=== PATIENT | female | born 1960 | race Caucasian/White ===

== ENCOUNTER → 2016-07-01 | Outpatient (CLI) | payer OTHER ==
[~2016-07-01] MED LIST: ALBUTEROL-200 PUFFS/ IH; LEVOTHYROXIN0.025 MG PO; LEVOTHYROXIN0.125 MG PO; LISINOPRIL20 MG PO; MEDROL 4MG. DOSE4 MG PO; MELOXICAM15 MG PO; PRAVASTATIN40 MG PO; PREDNISONE 20MG20 MG PO; [UNRECOGNIZED DRUG - OTHER] PO
--- NOTE | 2016-07-01 16:56 | RADIOLOGY REPORT PS360 ---
CT CHEST W/O CONTRAST HISTORY: Shortness of breath, COPD, abnormal chest x-ray, solitary pulmonary nodule ABNORMAL CXR, COPD, OPACITY ANTERIOR CLEAR SPACE ON CXR TECHNIQUE: Helical acquisition obtainedwithout contrast. Axial, sagittal, and coronal reformatted images are generated and reviewed. COMPARISON: Chest x-ray 06/14/[address] of 09/28/2014 FINDINGS: There are scattered small nodes in the axilla and mediastinum. No mediastinal or hilar mass is evident. Calcified node is present in the left hilum. There is a prominent right-sided pericardial fat pad accounting for some of the density noted along the right heart border. The nodular density noted over the anterior clear space is felt to be represented by fibrotic change and small left pericardial fat pad which is more apparent than when compared to the previous exam. No suspicious nodule is evident. There are mild atelectatic or fibrotic changes in the left lung base. No effusions or infiltrates. Upper abdominal images show decreased attenuation within the right hepatic lobe is incompletely imaged measuring approximately 11 mm. Probably not significant change from 09/28/2014. No acute bony anomalies. IMPRESSION: 1. No acute finding. No suspicious pulmonary nodule evident. 2. Prominent pericardial fat pad on the right. 3. Fibrotic changes of the right upper lobe and left pericardial fat pad represent the nodular opacity noted on the chest x-ray
== END ==
LOC: RAD 07:42
DX: R93.8 Abnormal findings on diagnostic imaging of other specified body structures (principal)

== ENCOUNTER → 2016-10-27 | Outpatient (CLI) | payer OTHER | LOC: RT 09:47 | DX: J44.9 Chronic obstructive pulmonary disease, unspecified (principal); G47.30 Sleep apnea, unspecified ==

== ENCOUNTER 2017-04-03 12:41 | Emergency (ER) | payer OTHER ==
[~2017-04-03] VITALS: Ht 152.4 cm; Wt 95.3 kg
[2017-04-03] MEDS ORDERED: IBU800 MG PO (12:48)
[2017-04-03] MEDS ORDERED: BREO ELLIPTA 21 EACH IH (12:48)
--- NOTE | 2017-04-03 12:51 | Emergency Room Report ---
History of Present Illness Time Seen by MD Peres Presenting Problem in Triage Pt arrived:Walked Presenting Problem:PT REPORTS INTERMITENT SQUEEZING TYPE CHEST PAIN X1 MONTH. 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 N Clinical Suspician of Infection? N Mental Status: 1 - Regular (Normal Baseline) Sepsis Risk:Low Sepsis Risk Have you (or family members/close friends) recently traveled outside the [place]? N If Yes, where/when: Have you had exposure to infectious disease within the past month? N TB? Other? Specify: Patient with chronic sinus and ear congestion, has felt worse this past week. No vomiting, cough, or fever. Had two episodes earlier this morning where she changed position and had vertigo, relieved by lying down. Has intermittent palpitations most days, very sharp and lasting less than a second, but no rhett chest pain. No chest pain on presentation to ED. Has chronic leg edema, no new changes. Reports no hx of known CAD, has "prediabetes", HTN, hyperlipidemia; denies tob use; states dad of [place] at age 68. She has no cephalgia and no acute neurological sx other than positional vertigo today. ALLERGIES Coded Allergies: amoxicillin (From Augmentin) (Intermediate, 09/22/15) clavulanic acid (From Augmentin) (Intermediate, 09/22/15) meloxicam (Intermediate, 09/22/15) Home Medications Reported Medications Albuterol (Albuterol-Hfa Inhaler) 2 PUFFS IH NEEDED #1 INH Lisinopril 20 MG PO DAILY Theophylline (Theocap) 300 MG PO DAILY Levothyroxine Sodium (Levothyroxine 0.125MG) 0.125 MG PO DAILY Fluticasone/Vilanterol (Breo Ellipta 200-25 Mcg INH) 1 EACH IH DAILY Ibuprofen (MOTRIN 800MG (generic) Tablet) 800 MG PO TID #90 History Medical History General CAD? No Angina: No GA: No Hypertension? Yes Hyperlipidemia? No CHF? No DVT? No PE? No COPD? Yes Asthma? Yes Anemia? No GERD? No Gastric ulcers? No GI Bleed? No Hernia? No Thyroid Problems? Yes Hypothyroidism? Yes CVA? No Seizures? No Diabetes? No Renal Insuffiency? No End Stage Renal Disease? No UTI? Yes Stones? No GB Disease: No Nephritic Syndrome? No Asplenia? No Hepatitis? No Sickle Cell Disease? No Arthritis? No Migraines? No Cataracts? No Glaucoma? No MRSA? No HIV? No TB? No Anxiety? No Depression? No Cancer? No More? 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 Psychiatric/Neurological see HPI Physical Exam Vital Signs Vital Signs Date Time Temp Pulse Resp B/P Pulse O2 O2 Flow FiO2 Ox Delivery Rate 04/03 1324 76 14 138/80 94 04/03 1241 98.0 79 20 156/68 94 General Appearance normal appearance, WD/WN, no apparent distress Eye Exam - bilateral eye normal exam, bilateral eye PERRL, bilateral eye EOMI Ear, Nose, Throat hearing grossly normal, abnormal TM (R), abnormal TM (L) ( cloudy B) Neck normal inspection, non-tender, supple, full range of motion Respiratory Status Yes: trachea midline, chest symmetrical, non tender chest. No: respiratory distress, tender on palpation, use of accessory muscles, pain on inspiration, pain on expiration, productive cough, non productive cough. Lung Sounds bilateral: normal breath sounds, lungs clear. Cardiovascular normal exam, regular rate/rhythm, no peripheral edema, no gallop, no JVD, no murmur, no rub, normal peripheral pulses Peripheral Pulses Pulses normal Yes Gastrointestinal normal bowel sounds, normal exam, non tender, soft, no organomegaly, no pulsatile mass, no guarding, no rebound Extremities non-tender, normal range of motion, normal inspection, normal capillary refill, no calf tenderness, no pedal edema (neg Mary's) Strength 5 Upper Ext (L), 5 Upper Ext (R), 5 Lower Ext (L), 5 Lower Ext (R) Neurologic alert, senior investment analyst II-XII nml as tested, normal exam, no motor/sensory deficits, oriented x 3 (speech clear; ambulatory) Glascow Coma Scale Glascow Coma Scale Response Value EYE response: 4 Spontaneously 4 MOTOR response: 6 OBEYS 6 VERBAL response: 5 Oriented & Converses 5 Total 15 Skin intact (flushed (tanning bed) face) Medical Decision Making LABS/Meds/Orders Pt receiving controlled substance in ED? No Results/Orders Laboratory Tests 04/03/17 1240: Sodium 140, Potassium 4.3, Chloride 105, Carbon Dioxide 29, BUN 20 H, Creatinine 0.8, Estimated Creat Clear 119, Estimated GFR (MDRD) 74, Glucose 143 H, Calcium 9.3, Total Bilirubin 0.3, AST 9 L, ALT 28, Alkaline Phosphatase 92, Creatine Kinase 72, CK-MB (CK-2) Rel Index 1.4, CK and CKMB Interp 1.0, Troponin I < 0.02, Total Protein 7.8, Albumin 3.7, Globulin 4.1 H, Albumin/Globulin Ratio 0.9 L, TSH 2.38, WBC 6.8, RBC 4.37, Hgb 13.8, Hct 40.3, MCV 92.2, RDW 12.8, Plt Count 263, MPV 8.1, Gran % 65.7, Gran # 4.5, Lymphocytes % 27.9, Monocytes % 3.9, Eosinophils % 1.6, Basophils % 0.8, Lymphocytes # 1.9, Monocytes # 0.3, Eosinophils # 0.1, Basophils # 0.1, PUBS MCHC 34.1, MCH 31.5 H Current Medication Orders Sig/Wendi Start time Last Medication Dose Route Stop Time Status Admin Sodium Chloride 10 ML PRN PRN 04/03 1300 AC IV 04/04 1249 Orders Procedure Date/time Status DIET-NOTHING BY MOUTH 04/03 D Active IV SALINE LOCK 04/03 1249 Active ELECTROCARDIOGRAM REQUEST 04/[address] HEAD REQ 04/03 1246 Complete THYROID STIMULATING HORMONE 04/03 1246 Complete CBC WITH AUTO DIFF 04/03 1246 Complete CARDIAC ENZYMES 04/03 1246 Complete CHEM 12 PROFILE 10/09 1246 Complete CM/EKG CM/EKG EKG rate, NSR, rhythm, no evid. of ischemic chgs, no ectopy, normal QRS, normal WA, normal EKG XRAY/CT/US XRAY/CT/US XRAY chest XR interpretation by reviewed by me Xray Results normal/NAD, no infiltrates, normal heart size, normal lung inflation jayce CT head CT interpretation by reviewed by me (report reviewed) Time results known: 1331 CT Results normal/NAD (neg acute per rad) Progress ED Progress Notes Date 04/03/17 Time 1338 Comment Asymptomatic now. Has not had any chest pain or palpitations while in the ED. Departure Departure Time of Disposition 1332 Disposition DC Home or Self Care(routine) Clinical Impression Primary Impression: Benign positional vertigo Qualifiers: Laterality: unspecified laterality Qualified Code: H81.10 - Benign paroxysmal vertigo, unspecified ear Condition STABLE Referrals Jackelyn Schuler APRN (PCP/Family) Patient Instructions Benign Paroxysmal Positional Vertigo Additional Instructions Recommend Claritin over the counter to treat congestion, which will help with the dizziness. Stand up slowly and carefully from sitting position, see Jackelyn one to two days. Discharge Counseling Counseled pt/family regarding diagnosis, test results, medications/RX, home care, follow up needs ED Critical Care Critical Care No at 1337
--- NOTE | 2017-04-03 12:51 | Emergency Room Report ---
History of Present Illness Time Seen by MD Peres Presenting Problem in Triage Pt arrived:Walked Presenting Problem:PT REPORTS INTERMITENT SQUEEZING TYPE CHEST PAIN X1 MONTH. 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 N Clinical Suspician of Infection? N Mental Status: 1 - Regular (Normal Baseline) Sepsis Risk:Low Sepsis Risk Have you (or family members/close friends) recently traveled outside the [place]? N If Yes, where/when: Have you had exposure to infectious disease within the past month? N TB? Other? Specify: Patient with chronic sinus and ear congestion, has felt worse this past week. No vomiting, cough, or fever. Had two episodes earlier this morning where she changed position and had vertigo, relieved by lying down. Has intermittent palpitations most days, very sharp and lasting less than a second, but no rhett chest pain. No chest pain on presentation to ED. Has chronic leg edema, no new changes. Reports no hx of known CAD, has "prediabetes", HTN, hyperlipidemia; denies tob use; states dad of [place] at age 68. She has no cephalgia and no acute neurological sx other than positional vertigo today. ALLERGIES Coded Allergies: amoxicillin (From Augmentin) (Intermediate, 09/22/15) clavulanic acid (From Augmentin) (Intermediate, 09/22/15) meloxicam (Intermediate, 09/22/15) Home Medications Reported Medications Albuterol (Albuterol-Hfa Inhaler) 2 PUFFS IH NEEDED #1 INH Lisinopril 20 MG PO DAILY Theophylline (Theocap) 300 MG PO DAILY Levothyroxine Sodium (Levothyroxine 0.125MG) 0.125 MG PO DAILY Fluticasone/Vilanterol (Breo Ellipta 200-25 Mcg INH) 1 EACH IH DAILY Ibuprofen (MOTRIN 800MG (generic) Tablet) 800 MG PO TID #90 History Medical History General CAD? No Angina: No OR: No Hypertension? Yes Hyperlipidemia? No CHF? No DVT? No PE? No COPD? Yes Asthma? Yes Anemia? No GERD? No Gastric ulcers? No GI Bleed? No Hernia? No Thyroid Problems? Yes Hypothyroidism? Yes CVA? No Seizures? No Diabetes? No Renal Insuffiency? No End Stage Renal Disease? No UTI? Yes Stones? No GB Disease: No Nephritic Syndrome? No Asplenia? No Hepatitis? No Sickle Cell Disease? No Arthritis? No Migraines? No Cataracts? No Glaucoma? No MRSA? No HIV? No TB? No Anxiety? No Depression? No Cancer? No More? 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 Psychiatric/Neurological see HPI Physical Exam Vital Signs Vital Signs Date Time Temp Pulse Resp B/P Pulse O2 O2 Flow FiO2 Ox Delivery Rate 04/03 1324 76 14 138/80 94 04/03 1241 98.0 79 20 156/68 94 General Appearance normal appearance, WD/WN, no apparent distress Eye Exam - bilateral eye normal exam, bilateral eye PERRL, bilateral eye EOMI Ear, Nose, Throat hearing grossly normal, abnormal TM (R), abnormal TM (L) ( cloudy B) Neck normal inspection, non-tender, supple, full range of motion Respiratory Status Yes: trachea midline, chest symmetrical, non tender chest. No: respiratory distress, tender on palpation, use of accessory muscles, pain on inspiration, pain on expiration, productive cough, non productive cough. Lung Sounds bilateral: normal breath sounds, lungs clear. Cardiovascular normal exam, regular rate/rhythm, no peripheral edema, no gallop, no JVD, no murmur, no rub, normal peripheral pulses Peripheral Pulses Pulses normal Yes Gastrointestinal normal bowel sounds, normal exam, non tender, soft, no organomegaly, no pulsatile mass, no guarding, no rebound Extremities non-tender, normal range of motion, normal inspection, normal capillary refill, no calf tenderness, no pedal edema (neg Mary's) Strength 5 Upper Ext (L), 5 Upper Ext (R), 5 Lower Ext (L), 5 Lower Ext (R) Neurologic alert, payment collector II-XII nml as tested, normal exam, no motor/sensory deficits, oriented x 3 (speech clear; ambulatory) Glascow Coma Scale Glascow Coma Scale Response Value EYE response: 4 Spontaneously 4 MOTOR response: 6 OBEYS 6 VERBAL response: 5 Oriented & Converses 5 Total 15 Skin intact (flushed (tanning bed) face) Medical Decision Making LABS/Meds/Orders Pt receiving controlled substance in ED? No Results/Orders Laboratory Tests 04/03/17 1240: Sodium 140, Potassium 4.3, Chloride 105, Carbon Dioxide 29, BUN 20 H, Creatinine 0.8, Estimated Creat Clear 119, Estimated GFR (MDRD) 74, Glucose 143 H, Calcium 9.3, Total Bilirubin 0.3, AST 9 L, ALT 28, Alkaline Phosphatase 92, Creatine Kinase 72, CK-MB (CK-2) Rel Index 1.4, CK and CKMB Interp 1.0, Troponin I < 0.02, Total Protein 7.8, Albumin 3.7, Globulin 4.1 H, Albumin/Globulin Ratio 0.9 L, TSH 2.38, WBC 6.8, RBC 4.37, Hgb 13.8, Hct 40.3, MCV 92.2, RDW 12.8, Plt Count 263, MPV 8.1, Gran % 65.7, Gran # 4.5, Lymphocytes % 27.9, Monocytes % 3.9, Eosinophils % 1.6, Basophils % 0.8, Lymphocytes # 1.9, Monocytes # 0.3, Eosinophils # 0.1, Basophils # 0.1, PUBS MCHC 34.1, MCH 31.5 H Current Medication Orders Sig/Wendi Start time Last Medication Dose Route Stop Time Status Admin Sodium Chloride 10 ML PRN PRN 04/03 1300 AC IV 04/04 1249 Orders Procedure Date/time Status DIET-NOTHING BY MOUTH 04/03 D Active IV SALINE LOCK 04/03 1249 Active ELECTROCARDIOGRAM REQUEST 04/[address] HEAD REQ 04/03 1246 Complete THYROID STIMULATING HORMONE 04/03 1246 Complete CBC WITH AUTO DIFF 04/03 1246 Complete CARDIAC ENZYMES 04/03 1246 Complete CHEM 12 PROFILE 10/09 1246 Complete CM/EKG CM/EKG EKG rate, NSR, rhythm, no evid. of ischemic chgs, no ectopy, normal QRS, normal SD, normal EKG XRAY/CT/US XRAY/CT/US XRAY chest XR interpretation by reviewed by me Xray Results normal/NAD, no infiltrates, normal heart size, normal lung inflation jayce CT head CT interpretation by reviewed by me (report reviewed) Time results known: 1331 CT Results normal/NAD (neg acute per rad) Progress ED Progress Notes Date 04/03/17 Time 1338 Comment Asymptomatic now. Has not had any chest pain or palpitations while in the ED. Departure Departure Time of Disposition 1332 Disposition DC Home or Self Care(routine) Clinical Impression Primary Impression: Benign positional vertigo Qualifiers: Laterality: unspecified laterality Qualified Code: H81.10 - Benign paroxysmal vertigo, unspecified ear Condition STABLE Referrals Jackelyn Schuler APRN (PCP/Family) Patient Instructions Benign Paroxysmal Positional Vertigo Additional Instructions Recommend Claritin over the counter to treat congestion, which will help with the dizziness. Stand up slowly and carefully from sitting position, see Jackelyn one to two days. Discharge Counseling Counseled pt/family regarding diagnosis, test results, medications/RX, home care, follow up needs ED Critical Care Critical Care No at 1336
[2017-04-03 12:53] LABS: HEMOGLOBIN 13.8 g/dL (12.2-16.2); LYMPH # 1.9 K/mm3 (0.7-4.5); LYMPH % 27.9 % (10-50.0)
[2017-04-03 13:22] LABS: BUN 20 mg/dL (7-18)
[2017-04-03 13:23] LABS: GFR (ESTIMATED) 74 ML/MIN (59-)
--- NOTE | 2017-04-03 13:29 | RADIOLOGY REPORT PS360 ---
CT HEAD W/O CONTRAST HISTORY: POSITIONAL VERTIGO ORDERING PHYSICIAN: Eneida Rangel MD PATIENT AGE: 56 years COMPARISON: None TECHNIQUE: Axial images obtained without contrast. Brain and bone windows reviewed. FINDINGS: No midline shift, mass effect, intracranial hemorrhage, hydrocephalus, or extra-axial fluid collection is evident. The calvarium has an unremarkable appearance. No mastoid effusion. The visualized paranasal sinuses are unremarkable. IMPRESSION: Negative CT head without contrast. No acute finding.
--- NOTE | 2017-04-03 13:32 | RADIOLOGY REPORT PS360 ---
CHEST-AP VIEW ONLY HISTORY: Recent cough and congestion dizzy ORDERING PHYSICIAN: Eneida Rangel MD PATIENT AGE: 56 years COMPARISON: 06/22/2016 FINDINGS: Normal heart size. There is increased density along the right heart border with silhouetting out of the right heart border. Previous CT scans have shown a prominent right pericardial fat pad. This density may be related to the pericardial fat pad and the portable technique. However, one cannot exclude the possibility of right middle lobe pneumonia/collapse versus right pericardial mass. Consider PA and lateral chest x-ray for further evaluation. The remaining lungs are clear. No acute bony anomalies. IMPRESSION: Increased density along the right heart border as described above possibly related to the previously noted prominent pericardial fat pad. Consider PA and lateral chest as right middle lobe consolidation or right pericardial mass cannot be excluded.
[2017-04-03 13:42] VITALS: BP 138/80
--- OUTSIDE RECORDS SUMMARY | 2017-04-08 02:06 | External Medical Summary Rpt | CCD ---
Author Author , ANICETO Organization AN[employer] Address Unknown Phone [email or web address] Immunization Name Date Rout CVX Reac Dose Comm Prov Is Faci e tion ent ider Refu lity Give sed n Td 12-2 9 999 Hist H149 No H149 (shaye 7-20 ori lt), 05 al Info adso rmat rbed ion - Sour ce Unsp ecif ied
--- OUTSIDE RECORDS SUMMARY | 2017-04-08 02:06 | External Medical Summary Rpt | CCD ---
Author Author ANICETO Address Unknown Phone Purpose Continuity of Care Document - 04-03-2017 through 2016
--- OUTSIDE RECORDS SUMMARY | 2017-04-08 02:06 | External Medical Summary Rpt | CCD ---
Author Author , ANICETO Organization ANIC[employer] Address Unknown Phone [email or web address] Immunization Name Date Rout CVX Reac Dose Comm Prov Is Faci e tion ent ider Refu lity Give sed n Td 12-2 9 999 Hist H149 No H149 (shaye 7-20 ori lt), 05 al Info adso rmat rbed ion - Sour ce Unsp ecif ied
--- OUTSIDE RECORDS SUMMARY | 2017-04-08 02:06 | External Medical Summary Rpt | CCD ---
Author Author ANICETO Address Unknown Phone [email or web address] Purpose Continuity of Care Document - 04-03-2017 through 2016
--- OUTSIDE RECORDS SUMMARY | 2017-04-08 02:06 | External Medical Summary Rpt ---
Author Author [employer] Production, [employer] Organization [employer] Address Unknown Phone Unavailable Results CBC W Auto Differential panel in Blood Observa Value Referen Units Interpr Notes Date tion ce etation Range Basophils 0 - 0.2 K/MM3 Normal No Apr 03 inform2016 [#/volume on in 12:40 PM ] in source Blood by data Automated count Basophils 0.1 - 2.0 % Normal No Apr [id number] leukocyte on in 12:40 PM s in source Blood by data Automated count Eosinophi 0.0 - 0.4 K/mm3 Normal No Apr 03 ls 2016 [#/volume on in 12:40 PM ] in source Blood by data Automated count Eosinophi 0.1 - % Normal No Apr 03 ls/100 12.0 2016 leukocyte on in 12:40 PM s in source Blood by data Automated count Granulocy 1.8 - 7.8 K/mm3 Normal No Apr 03 roseanne 2016 [#/volume on in 12:40 PM ] in source Blood by data Automated count Granulocy 37.0 - % Normal No Apr 03 roseanne/100 80.0 inform2016 leukocyte on in 12:40 PM s in source Blood by data Automated count Hematocri 37.0 - % Normal No Apr 03 t [Volume 47.0 2016 on in 12:40 PM Fraction] source of Blood data Hemoglobi 12.2 - g/dL Normal No Apr 03 n 16.2 2016 [Mass/vol on in 12:40 PM ume] in source Blood data Lymphocyt 0.7 - 4.5 K/mm3 Normal No Apr 03 es 2016 [#/volume on in 12:40 PM ] in source Unspecifi data ed specimen by Automated count Lymphocyt 10 - 50.0 % Normal No Apr 03 es 2016 [#/volume on in 12:40 PM ] in source Unspecifi data ed specimen by Automated count Erythrocy 27 - 31.2 pg High No Apr 03 te mean 2016 corpuscul on in 12:40 PM ar source hemoglobi data n [Entitic mass] Erythrocy 31.8 - g/dl Normal No Apr 03 te mean 35.4 inform2016 corpuscul on in 12:40 PM ar source hemoglobi data n concentra tion [Mass/vol ume] by Automated count Erythrocy 82.2 - fl Normal No Apr 03 te mean 97.8 inform2016 corpuscul on in 12:40 PM ar volume source [Entitic data volume] by Automated count Monocytes 0.1 - 1.0 K/mm3 Normal No Apr 03 inform2016 [#/volume on in 12:40 PM ] in source Blood by data Automated count Monocytes 1.7 - 9.3 % Normal No Apr 03 /100 inform2016 leukocyte on in 12:40 PM s in source Blood by data Automated count Platelet 7.4 - fl Normal No Apr 03 mean 10.4 inform2016 volume on in 12:40 PM [Entitic source volume] data in Blood by Automated count Platelets 142 - 424 K/mm3 Normal No Apr 03 inform2016 [#/volume on in 12:40 PM ] in source Blood data Erythrocy 4.2 - 5.4 M/mm3 Normal No Apr 03 roseanne inform2016 [#/volume on in 12:40 PM ] in source Amniotic data fluid Erythrocy 11.5 - % Normal No Apr 03 te 17.5 inform2016 distribut on in 12:40 PM ion width source [Entitic data volume] by Automated count Leukocyte 4.8 - K/MM3 Normal No Apr 03 s 10.8 inform2016 [#/volume on in 12:40 PM ] in source Blood data
--- OUTSIDE RECORDS SUMMARY | 2017-04-08 02:06 | External Medical Summary Rpt | CCD ---
Demographics Preferred Language Micronesian Marital Status Unknown Lutheran Affiliation Unknown Race Unknown Ethnic Group Unknown Author Author ANICETO Address Unknown Phone [email or web address] Purpose Continuity of Care Document - through 2016
--- OUTSIDE RECORDS SUMMARY | 2017-04-08 02:06 | External Medical Summary Rpt | CCD ---
Demographics Preferred Language Bahamian Marital Status Unknown Roman Catholic Affiliation Unknown Race Unknown Ethnic Group Unknown Author Author ANICETO Address Unknown Phone [email or web address] Purpose Continuity of Care Document - through 2016
== END 2017-04-03 13:44 | disposition home or self-care (01) ==
LOC: ER 12:41
PROVIDERS: Emergency Medicine
DX: H81.12 Benign paroxysmal vertigo, left ear (principal); I10 Essential (primary) hypertension; J44.9 Chronic obstructive pulmonary disease, unspecified; Z88.1 Allergy status to other antibiotic agents; E03.9 Hypothyroidism, unspecified; Z87.891 Personal history of nicotine dependence

== ENCOUNTER → 2017-04-04 | Outpatient (CLI) | payer OTHER ==
[~2017-04-04] MED LIST changes: +BREO ELLIPTA 21 EACH IH; +IBU800 MG PO
== END ==
LOC: LAB 13:12
DX: R42 Dizziness and giddiness (principal)

== ENCOUNTER → 2017-05-12 | Outpatient (CLI) | payer OTHER ==
--- NOTE | 2017-05-13 20:11 | RADIOLOGY REPORT PS360 ---
US PELVIS-TRANSVAGINAL ONLY Ordering Physician: Cayden Babin MD Patient Age: 56 years: Female HISTORY: POST MENOPAUSAL BLEEDING minimal spotting TECHNIQUE: Transvaginal pelvic ultrasound COMPARISON :No previous relevant studies FINDINGS Uterus. Normal size. 7.6 seem in length as 3.4 cm x 4.2 cm . Nabothian cyst at the cervix 7.5 mm size . There is a 2 cm x 1.9 cm fibroid at the anterior left aspect of the uterus. . This does indent the endometrial stripe. The endometrial stripe is not well delineated but measures up to 9.7 mm AP-nearly 1 centimeter in some areas, towards the fundus. No adnexal masses.No fluid is seen at the cul-de-sac RIGHT OVARY measures 3.1 x 2.1 x 2.6 cm . 1.1 cm cyst at posterior right ovary LEFT OVARY 2.9 x 3 x 2.4 cm Numerous cysts at the left ovary. Largest 1.4 cm cyst at posterior left ovary.. 9 mm cyst towards superior aspect left ovary. There is also a 9 mm cyst extending anterior from the left ovary. IMPRESSION: 1. Uterus is overall normal in size but with 1. 2 cm fibroid anterior myometrium. 2. Generous endometrial stripe at the fundus measuring just less than 1 cm. 3.. Ovaries appear normal in size. Multiple left ovarian cyst with the largest measuring 1.4 cm others measuring up to 9 mm..
== END ==
LOC: RAD 10:46
DX: N95.0 Postmenopausal bleeding (principal)

== ENCOUNTER → 2017-05-29 | Outpatient (CLI) | payer OTHER | LOC: LAB 13:31 | PROVIDERS: Internal Medicine Endocrinology, Diabetes & Metabolism | DX: E05.00 Thyrotoxicosis with diffuse goiter without thyrotoxic crisis or storm (principal); E89.0 Postprocedural hypothyroidism ==

== ENCOUNTER → 2017-06-05 | Outpatient (CLI) | payer OTHER ==
[2017-06-05 11:02] LABS: URINE BILIRUBIN - DIPSTICK NEGATIVE (NEG); URINE BLOOD NEGATIVE (NEG)
[2017-06-05 11:08] LABS: HEMOGLOBIN 13.9 g/dL (12.2-16.2); LYMPH # 2.3 K/mm3 (0.7-4.5); LYMPH % 27.5 % (10-50.0)
--- NOTE | 2017-06-05 11:56 | RADIOLOGY REPORT PS360 ---
CHEST(2 VIEWS-NOT PORTABLE) HISTORY: Cough, hypertension HTN ORDERING PHYSICIAN: Cayden Babin MD PATIENT AGE: 57 years COMPARISON: 04/03/2017 FINDINGS: Normal heart size. Increased soft tissue density in the right pericardial region consistent with pericardial fat pad as seen on previous chest CT of 07/01/2016. The remaining lungs are clear. No acute bony anomalies. IMPRESSION: 1. No acute finding. 2. Right pericardial fat pad.
[2017-06-05 12:53] LABS: BUN 15 mg/dL (7-18)
[2017-06-05 12:54] LABS: GFR (ESTIMATED) 74 ML/MIN (59-)
== END ==
LOC: LAB 10:31
PROVIDERS: Obstetrics & Gynecology
DX: N95.0 Postmenopausal bleeding (principal); D25.9 Leiomyoma of uterus, unspecified; Z01.812 Encounter for preprocedural laboratory examination

== ENCOUNTER 2017-06-09 08:37 | Day surgery (SDC) | payer OTHER ==
--- NOTE | 2017-06-09 11:20 | Operative Note ---
Procedure/Operative Record Date of Procedure: 06/09/17 Referring physician: Dr. Valdovinos Pre-op diagnosis: Postmenopausal bleeding Post-op diagnosis: Postmenopausal bleeding, endometrial polyp Procedure performed: Diagnostic hysteroscopy, endometrial polypectomy, fractional dilatation and curettage. Surgeon: Cayden Babin Anesthesia: , WILLIAM Dorsey Indications: Postmenopausal bleeding Description of procedure: After the patient was prepped and draped in usual fashion and general anesthesia was administered, examination under anesthesia revealed a normal-sized anteverted uterus, with no palpable adnexal masses. A weighted speculum was placed within the posterior fourchette of the vagina, and the anterior lip of the cervix was grasped with a single-tooth tenaculum. The cervix was stenotic and required minor dilatation. A small curette was introduced into the endocervix, with retrieval of a small amount of mucoid tissue. The uterus was then sounded in an anteverted direction to 10 cm, and easily dilated to number 20 Hegar dilators. Using 1.5 percent glycine as a distending medium, and operating hysteroscope was introduced into the endometrial cavity. The tissue appeared hyperplastic and polypoid. A single long thin polyp was removed. A sharp curette was then introduced into the endometrial cavity, with retrieval of a moderate amount of lush endometrium. Reintroduction of the hysteroscope revealed no further pathology. The instruments were removed. The sponge and needle counts correct. The estimated blood loss was 20 mL. The patient tolerated the procedure well, and was taken to PACU in excellent condition. She'll be discharged today, if her vital signs are stable. EBL (ml): 20 Complications: None Specimens: 1. Uterine curettings. 2. Endometrial polyp. at [id number]
--- NOTE | 2017-06-09 11:23 | Anesthesia Record ---
Anesthesia Record Part II Discharge time: 1150 Destination: Same day surgery PACU nurse assessment review? Yes Patient is: Stable Anesthesia complications? No at 1127
--- NOTE | 2017-06-09 11:23 | Anesthesia Record ---
Anesthesia Record Part I Total IV fluids: 500 EBL (ml): 20 Urine Output: 50 B/P: 135/73 % SaO2: 95 Pulse: 84 Resps: 16 Temp: 98.2 Patient is: Drowsy, Stable Stable to PACU at: 1120 at 1122
[2017-06-09 12:21] LABS: HEMOGLOBIN 13.1 g/dL (12.2-16.2)
[2017-06-09 15:31] VITALS: BP 141/63
== END 2017-06-09 12:55 | disposition home or self-care (01) ==
LOC: SDC 08:37
PROVIDERS: Obstetrics & Gynecology
PROC: 0UDB8ZX Extraction of Endometrium, Via Natural or Artificial Opening Endoscopic, Diagnostic (ICD-10-PCS; principal; 2017-06-09 10:30)
DX: N95.0 Postmenopausal bleeding (principal); N84.0 Polyp of corpus uteri
CPT/HCPCS: J0131; J1956; J2405; S0077